=== PATIENT | male | born 1955 | race Caucasian/White ===

== ENCOUNTER 2020-04-01 09:49 | Observation (INO) | payer BC, MEDICARE, SELFPAY ==
[2020-04-01] VITALS (10 sets, daily range): BP systolic 142–187; BP diastolic 82–114; PULSE 73–87; RESP 16–17; TEMP 36.7; O2SAT 92–99
--- NOTE | ~2020-04-01 | XR_ITS ---
EXAMINATION: XR chest 1V DATE: 04/01/2020 11:50 INDICATION: Dizziness. Weakness. Nausea and vomiting. TECHNIQUE: A single frontal view of the chest was obtained. COMPARISON: Chest single view 03/16/2014 FINDINGS: The chest demonstrates clear lungs without pneumonia, pleural effusion, or pneumothorax. Th e heart size is normal. IMPRESSION: 1. No acute cardiopulmonary disease. Reviewed, dictated and finalized at location A. BALL TRIMMER
--- NOTE | ~2020-04-01 | CT_ITS ---
EXAMINATION: CT brain wo con DATE: 04/01/2020 11:41 INDICATION: Dizziness. TECHNIQUE: Computed tomography (CT) of the head was performed without intravenous contrast. The mA wa s adjusted according to patient size. Iterative reconstruction technique was employed. The dose-lengt h product was 681.00 mGy-cm. COMPARISON: Head CT 03/16/2014 FINDINGS: There is no intracranial hemorrhage, acute infarction, or abnormal intracranial mass lesion . The ventricles are normal in size. The orbits are normal. There is mild mucosal thickening in the p aranasal sinuses. The mastoid air cells are normal. IMPRESSION: 1. Normal brain. Reviewed, dictated and finalized at location A. ER HOLE REAMER IMPRESSION: 1. Normal brain.
--- NOTE | ~2020-04-01 | MR_ITS ---
EXAMINATION: MR brain/brain stem wo/w con EXAM DATE: 04/02/2020 09:25 INDICATION: Vertigo. TECHNIQUE: Magnetic resonance imaging (MRI) of the brain/brain stem obtained without contrast. Sagit emelina T1, axial diffusion, gradient echo (T2*), T1, T2, FLAIR sequences obtained. Patient was then inj ected with 17 cc intravenous Multihance contrast. Axial and coronal postcontrast T1 weighted sequence s obtained. There is no prior study for comparison. FINDINGS: There are no areas of restricted diffusion to suggest acute infarction. There is no acute hemorrhage seen on the T2*, a hemosiderin sensitive sequence. No intraparenchymal brain mass lesion. There is mild periventricular and subcortical T2/FLAIR signal hyperintensity, nonspecific but probab ly related to small vessel ischemic disease (microangiopathy). There are no extra-axial collections . Flow voids are seen in the cerebral arteries on the T2-weighted sequences consistent with their ex pected patency. The orbits are unremarkable. Soft tissue is unremarkable. Mild mucoperiosteal thick ening. IMPRESSION: 1. No acute intracranial findings. 2. Chronic age related findings. Reviewed, dictated and finalized at location B. ETING DESIGNER
[2020-04-01] MEDS: ONDANSETRON INJ 4 MG/2 ML VIAL IV PUSH (10:00)
[2020-04-01] MEDS: diazePAM INJ (*CRX) 10 MG/2 ML SYRINGE 5 MG IV PUSH (10:00)
--- NOTE | 2020-04-01 10:20 | PC.NURSE ---
pt sleeping. o2 decreased to 90% room air. pt placed on 2 l via nc. pt noted to have sleep apnea. per states pt has been having that at home as well. suggested to pt have sleep study completed.
[2020-04-01] MEDS: MECLIZINE HCL 25 MG TABLET PO (10:49)
--- NOTE | 2020-04-01 11:17 | ECG_ITS ---
Measurements Intervals [place] Rate: 76 P: 12 AR: 189 QRS: 44 QRSD: 109 T: 17 QT: 393 QTc: 444 Interpretive Statements SINUS RHYTHM CONSDIER INFERIOR INFARCT, AGE INDETERMINATE ABNORMAL ECG Electronically Signed On 04-01-2020 12:04:15 AUTOMOTIVE GLAZIER by Brennan Velez D.O.
--- NOTE | 2020-04-01 11:36 | ED.DIZZY ---
HPI - Dizziness General Chief Complaint: Dizziness Stated Complaint: VERTIGO Time Seen by Provider: 04/01/20 11:08 Source: RN notes reviewed History of Present Illness HPI Narrative: Patient presents emergency department from home for vertigo. Patient states symptoms began approximately 1 hour prior to arrival states he began to feel like the room was spinning and was associated nausea and vomiting. Patient states he has had vertigo before in the past and feels similar to prior episodes. He denies any fevers or chills vision changes numbness or tingling in extremities chest pain shortness of breath abdominal pain nausea vomiting or any other symptoms. 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 secondary to Covid and is concerned about possible Covid Related Data Allergies Allergy/AdvReac Type Severity Reaction Status Date / Time No Known Allergies Allergy Unknown Verified 03/16/14 13:32 Review of Systems Review of Systems: Narrative: Gen.: Denies fevers or chills Eyes: Denies eye pain or visual change ENT: Denies congestion Respiratory: Denies shortness of breath or cough CV: Denies chest pain or palpitations GI: Denies abdominal pain reports nausea vomiting denies burning, urgency, frequency or hematuria Musculoskeletal: Denies back pain or muscle pain Neuro: See HPI Skin: Denies rash Except as documented, all other systems reviewed and negative [facility] Past Medical History Medical History (Updated 04/01/20 @ 14:28 by Romulo Torres DO) Kidney stones Social History Social History (Updated 04/01/20 @ 11:38 by Romulo Torres DO) Smoking status: Never smoker Exam Narrative: Exam Narrative: APPEARANCE: No acute distress, nontoxic, resting in bed HEENT: Normocephalic, atraumatic, OMM, EYES: PERRL, EOMI NECK: Supple, nontender, full range of motion without pain, no meningismus RESPIRATORY: No respiratory distress, clear to auscultation bilaterally with no rhonchi wheezing or rales CARDIOVASCULAR: RRR s murmur ABDOMINAL: Soft, nontender, nondistended MUSCULOSKELETAL: Moves all extremities. No clubbing, cyanosis or edema. NEURO: A and O ?3, following commands, speech normal, cranial nerves II through XII grossly intact,muscle strength 5 out of 5 bilateral upper and lower extremities dizziness with opening eyes SKIN:: Warm, dry. Normal Color PSYCHIATRIC: Normal affect/mood Course Course Emergency Course: Patient continues to have vertigo with opening eyes unable to ambulate secondary to vertigo will admit at this time Discussed with SYLVAIN Goel for Dr. Meng presentation work-up agrees with admission Discussed with patient and family results of workup and diagnosis. Discussed need for admission. Patient and family understand and agree to current treatment plan Vital Signs Vital signs: Vital Signs Pulse Rate 80 04/01/20 09:50 Respiratory Rate 16 04/01/20 09:50 Blood Pressure 158/98 H 04/01/20 09:50 Pulse Oximetry 92 04/01/20 09:50 Pulse Rate 82 04/01/20 13:38 Respiratory Rate 17 04/01/20 13:17 Blood Pressure 187/114 H 04/01/20 13:38 Pulse Oximetry 99 04/01/20 13:17 MDM - Dizziness Lab Data Result diagrams: 04/01/20 12:06 04/01/20 12:06 Labs: Lab Results 04/01/20 04/01/20 04/01/20 Range/Units 12:06 12:06 12:06 WBC 12.5 H (4.5-10.0) K/mm3 RBC 5.62 (4.6-6.20) M/mm3 Hgb 16.5 (14.0-18.0) g/dL Hct 48.6 (42.0-52.0) % MCV 86.5 (80-100) fl MCH 29.4 (26-34) pg MCHC 34.0 (32-36) g/dl RDW 12.9 (11.5-14.5) % Plt Count 180 (150-375) k/mm3 MPV 10.3 (7.4-10.4) fl Immature Gran % (Auto) 0.7 H (0-0.5) % Neut % (Auto) 85.7 H (45.5-73.1) % Lymph % (Auto) 7.2 L (18.3-44.2) % Norman % (Auto) 5.8 (2.6-8.5) % Eos % (Auto) 0.3 (0-4.4) % Baso % (Auto) 0.3 (0.2-1.2) % Lymph # (Auto) 0.90 (0.9-3.2) K/mm3 Norman # (Auto) 0.7 H (0.1-
[2020-04-01] MEDS: SODIUM CHLORIDE 0.9% IV 1,000 ML 999 ML IV CONT (12:13)
[2020-04-01 12:17] LABS: Basophils Percent Auto 0.3 % (0.2-1.2); Eosinophils Percent Auto 0.3 % (0-4.4); Hematocrit 48.6 % (42.0-52.0); Hemoglobin 16.5 g/dL (14.0-18.0); Immature Granulocyte Absolute 0.09 K/mm3 (0.00-0.031); Immature Granulocyte Percent A 0.7 % (0-0.5); Lymphocytes Percent Auto 7.2 % (18.3-44.2); Mean Corpuscular Hemoglobin 29.4 pg (26-34); Mean Corpuscular Volume 86.5 fl (80-100); Mean Platelet Volume 10.3 fl (7.4-10.4); Monocytes Absolute Auto 0.7 K/mm3 (0.1-0.6); Monocytes Percent Auto 5.8 % (2.6-8.5); Neutrophils Absolute Auto 10.7 K/mm3 (1.3-6.7); Neutrophils Percent Auto 85.7 % (45.5-73.1); Platelet Count Result 180 k/mm3 (150-375); Red Blood Count 5.62 M/mm3 (4.6-6.20); Red Cell Distribution Width 12.9 % (11.5-14.5); White Blood Count 12.5 K/mm3 (4.5-10.0)
[2020-04-01 12:28] LABS: Alanine Aminotransferase 45 U/L (4-50); Albumin Level 4.4 g/dL (3.5-5.1); Alkaline Phosphatase 84 U/L (38-126); Anion Gap 6 mmol/L (8-16); Aspartate Amino Transferase 35 U/L (17-59); Bilirubin,Total 0.6 mg/dL (0.2-1.3); Blood Urea Nitrogen 12 mg/dL (9-20); Carbon Dioxide 28 mmol/L (22-30); Chloride 105 mmol/L (98-107); Estimated CRCL calculation 61 ml/min; Estimated Glomerular Filt Rate > 60; Glucose 149 mg/dL (75-110); Potassium 4.4 mmol/L (3.4-5.0); Sodium 139 mmol/L (137-145)
[2020-04-01 12:31] LABS: Prothrombin Time 13.5 Seconds (11.1-14.7)
[2020-04-01 12:32] LABS: Partial Thromboplastin Time 26.9 SECONDS (22.3-36.8)
[2020-04-01 12:53] LABS: Troponin I < 0.012 ng/mL (0.000-0.034)
[2020-04-01 13:58] LABS: Add Urine Microscopic? NO; Appearance Urine Clear (Clear); Bilirubin Urine Negative (Negative); Blood Urine Negative (Negative); Color Urine Straw (Yellow); Glucose Urine UA Negative (Negative); Ketones Urine Negative (Negative); Leukocyte Esterase Ur Negative LEU/UL (Negative); Nitrate Urine Negative (Negative); Protein Urine Negative (Negative); Specific Grav Ur 1.012 (1.001-1.035); Urobilinogen Urine Negative mg/dL (<2.0)
--- NOTE | 2020-04-01 17:00 | ADMGEN ---
This patient, Bob Butcher , was admitted to Medical Room 256-. Patient/family oriented to hospital policies and general routines including ID bracelet, bed and alarms, visiting hours, pain management, procedures, bathroom and other care routines, personal items, smoking policy, room service/diet, and visiting hours. Information on how to activate the Rapid Response Team has been discussed. Patient/Family are encouraged to report perceived risks to care and to ask questions if they do not understand what they are told or what they should do.
[2020-04-01] MEDS: LACTATED RINGERS 1,000 ML 125 ML IV CONT (17:19)
[2020-04-01 19:16] LABS: Troponin I < 0.012 ng/mL (0.000-0.034)
[2020-04-01 22:21] LABS: Troponin I < 0.012 ng/mL (0.000-0.034)
[2020-04-02] VITALS (11 sets, daily range): BP systolic 144–175; BP diastolic 80–84; PULSE 66–87; RESP 14–16; TEMP 36.4–37.2; O2SAT 92–95
[2020-04-02] MEDS: LACTATED RINGERS 1,000 ML 125 ML IV CONT ×2 (01:44→11:35)
[2020-04-02 05:59] LABS: Anion Gap 3 mmol/L (8-16); Blood Urea Nitrogen 11 mg/dL (9-20); Calcium 8.8 mg/dL (8.4-10.2); Carbon Dioxide 28 mmol/L (22-30); Chloride 106 mmol/L (98-107); Estimated CRCL calculation 67 ml/min; Estimated Glomerular Filt Rate > 60; Glucose 102 mg/dL (75-110); Potassium 3.9 mmol/L (3.4-5.0); Sodium 137 mmol/L (137-145)
[2020-04-02 06:05] LABS: Basophils Percent Auto 0.2 % (0.2-1.2); Eosinophils Absolute Auto 0.1 K/mm3 (0-0.3); Eosinophils Percent Auto 0.6 % (0-4.4); Hematocrit 44.2 % (42.0-52.0); Hemoglobin 14.9 g/dL (14.0-18.0); Immature Granulocyte Absolute 0.03 K/mm3 (0.00-0.031); Immature Granulocyte Percent A 0.3 % (0-0.5); Lymphocytes Absolute Auto 1.85 K/mm3 (0.9-3.2); Lymphocytes Percent Auto 20.9 % (18.3-44.2); Mean Corpuscular HGB Conc 33.7 g/dl (32-36); Mean Corpuscular Hemoglobin 29.4 pg (26-34); Mean Corpuscular Volume 87.2 fl (80-100); Mean Platelet Volume 10.3 fl (7.4-10.4); Monocytes Absolute Auto 1.1 K/mm3 (0.1-0.6); Monocytes Percent Auto 12.4 % (2.6-8.5); Neutrophils Absolute Auto 5.8 K/mm3 (1.3-6.7); Neutrophils Percent Auto 65.6 % (45.5-73.1); Platelet Count Result 184 k/mm3 (150-375); Red Blood Count 5.07 M/mm3 (4.6-6.20); White Blood Count 8.9 K/mm3 (4.5-10.0)
[2020-04-02] MEDS: MECLIZINE HCL 6.25 MG TABLET PO ×3 (10:10→16:55)
[2020-04-02] MEDS: METOPROLOL SUCCINATE EXT REL 50 MG TABCR PO (10:10)
--- NOTE | 2020-04-02 15:52 | PM.IMHP ---
H&P: HPI History of Present Illness Date/Time: 04/02/20 Chief Complaint: Vertigo Narrative: Date of Admission 04/01/20 1538 Date/Time Seen 04/02/20 0915 The supervising physician for this history and physical is Dr Ino Meng. Mr. Butcher is a pleasant 65yo M with history of hypertension who presented to the ED for evaluation of sudden onset vertigo symptoms that began around 9:00 AM 04/01 while he was work. He described he suddenly felt as though the room was spinning. Yesterday he also had associated nausea and vomiting which is improved today. He denies any headaches or photophobia. No focal arm or leg weakness, numbness, or tingling. He has experienced vertigo in the past, but he describes this episode is much worse and has lasted much longer. He describes that about 1 week ago he had an episode of vertigo that lasted around 3-4 minutes and subsided on its own. Today, he feels mildly nauseous without emesis. His room-spinning sensation is exacerbated by movement and with lying on his back; relieved by closing his eyes. He has not had much to eat or drink since yesterday due to the dizziness. Workup thus far has included CT brain which shows no acute intracranial abnormalities, chest x-ray which is clear, routine lab work has demonstrated mild leukocytosis WBC 12,500 which is resolved this morning. Overall, his symptoms are still present but a little improved compared to when he came in. Review of Systems Review of Systems: Narrative: Patient describes room spinning sensation worsened with movement and lying flat on his back, relieved with closing his eyes. Denies headache or photophobia. No arm or leg weakness, numbness, tingling. Mild nausea persists today without emesis, he was vomiting yesterday. He denies any known exposure to COVID positive person's, although a co-worker was quarantined due to being exposed to a COVID positive family member, but the patient's co-worker did not test positive to his knowledge. Patient denies shortness of breath, cough, chest pain, palpitations, fever or chills. Denies loss of taste or smell. Twelve systems were reviewed with pertinent positives and negatives as per HPI. Except as documented, all other systems were reviewed and are negative. [facility] Past Medical History Medical History (Updated 04/02/20 @ 16:40 by Estephanie Crews PA-C) Hypertension Kidney stones Surgical History Surgical History (Updated 04/02/20 @ 16:31 by Estephanie Crews PA-C) S/P tonsillectomy As a child Status post right knee replacement Family History Family History (Updated 04/01/20 @ 17:41 by Clau Coley, RN) Father Cancer Diabetes mellitus Mother Lung cancer Social History Social History (Updated 04/02/20 @ 16:34 by Estephanie Crews PA-C) Social History: Mr. Butcher lives at home with his girlfriend, Tabitha, in [place]. 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 He denies alcohol, tobacco, or other substance use. PCP: Dr Rob Vega in [place] POA: Daughter, Alejandra Ochoa Code: Full Code Smoking status: Never smoker Alcohol intake: never Substance use: never Gender identity (if verbalized by the patient): Male Sexual Orientation (if Verbalized by the Patient): Straight or Heterosexual Spiritual care concerns: No Meds Home Medications and Allergies Home Medications Medication Instructions Recorded Confirmed Type metoprolol succinate 50 mg PO DAILY 04/01/20 04/01/20 History Allergies Allergy/AdvReac Type Severity Reaction Status Date / Time No Known Allergies Allergy Unknown Verified 04/01/20 17:24 Vital Signs Last Vital Signs Temp 98.2 F 04/02/20 14:00 Pulse 75 04/02/20 14:00 Resp 14 04/02/20 14:00 BP 175/80 H 04/02/20 14:00 Pulse Ox 95 04/02/20 14:00 Exam Narrative: Exam Narrative: General: Well-developed, well-nourished male resting lying on his left side in bed in no acute distress, eyes
--- NOTE | 2020-04-02 17:25 | PCPTNOTE ---
Physical Therapist downgraded patient's treatment frequency from BID 5-7days/wk to OD 5-7days/wk given his progress with functional mobility during today's afternoon therapy session. Bess Rhodes, PT, DPT
[2020-04-02] MEDS: LACTATED RINGERS 1,000 ML 100 ML IV CONT (20:36)
[2020-04-03] VITALS: PULSE 72
[2020-04-03 04:00] VITALS: PULSE 65
[2020-04-03 05:15] VITALS: BP 148/79; PULSE 64; RESP 16; TEMP 36.5; O2SAT 92
[2020-04-03] MEDS: LACTATED RINGERS 1,000 ML 100 ML IV CONT (06:12)
[2020-04-03 08:00] VITALS: PULSE 64
[2020-04-03] MEDS: METOPROLOL SUCCINATE EXT REL 50 MG TABCR PO (09:04)
[2020-04-03] MEDS: MECLIZINE HCL 6.25 MG TABLET PO ×2 (09:05→12:59)
[2020-04-03 12:00] VITALS: PULSE 64
[2020-04-03 14:00] VITALS: BP 161/80; PULSE 70; RESP 18; TEMP 36.5; O2SAT 95
--- NOTE | 2020-04-03 14:57 | PM.DS ---
DS: Admitting Diagnosis Admitting Diagnosis Admitting Diagnosis: Vertigo DS: Discharge Diagnosis Discharge Diagnosis (1) Vertigo: Code(s): R42 - Dizziness and giddiness Status: Acute Assessment and Plan: Date of Admission 04/01/20 Date of Discharge/DOS 04/03/20 Mr. Butcher is a pleasant 65yo M with history of hypertension who presented to the ED for evaluation of sudden onset vertigo symptoms that began around 9:00 AM 04/01 while he was work. He described he suddenly felt as though the room was spinning with associated nausea and vomiting, without headache or photophobia. No focal arm or leg weakness, numbness, or tingling. He has experienced vertigo in the past, but he describes this episode is much worse and has lasted much longer. CT and MRI of brain demonstrate no acute intracranial abnormality. Vertigo is suspected. He was treated with meclizine, valium in ED, antiemetics, and IV hydration. He was seen by physical therapy for vestibular therapy and can continue such at discharge if needed. His symptoms improved with the therapy outlined above and he is able to ambulate independently without too much dizziness. He is hemodynamically stable for discharge on 04/03/20 with instructions to follow up with PCP this week. Patient symptoms are improved but still present. CT and MRI brain show no acute intracranial abnormalities. Treated with supportive care with meclizine, antiemetics as needed, IV hydration. PT saw him for vestibular therapy. (2) Hypertension: Code(s): I10 - Essential (primary) hypertension Status: Chronic Assessment and Plan: BPs elevated prior to home metoprolol was resumed. BPs improved with his metoprolol, continue same at discharge and follow up with PCP. DS: Summary Hospital Course Hospital Course: See above. Time Spent with Patient Time attestation: Total time spent providing and/or coordinating discharge services: Exam Narrative: Exam Narrative: General: Well-developed, well-nourished male resting lying on his left side in bed in no acute distress, eyes closed. HEENT: Normocephalic, atraumatic, EOMI, PERRL, oral mucosa tacky, oropharynx clear without exudate or erythema. No nystagmus. Neck: Supple. Chest: Lungs clear to auscultation all soto. Respirations are even and nonlabored. Tolerating room air. Heart: Heart rate and rhythm regular with S1-S2. No murmur, rub, or gallop appreciated. Abdomen: Protuberant but soft, nontender, nondistended, bowel sounds present. Skin: Warm, dry, no rashes or lesions noted on limited exam. Extremities: Peripheral pulses intact. No edema, or pain to palpation. Neurologic: Awake, alert and oriented. No neurological deficits are noted conversation. Cranial nerves II-XII intact as tested. Speech is clear. No nystagmus noted. Psychiatric: Mood and affect are normal. Cooperative. DS: Data Imaging Radiologist's impression: Last Vital Signs Temp 97.7 F 04/03/20 14:00 Pulse 70 04/03/20 14:00 Resp 18 04/03/20 14:00 BP 161/80 H 04/03/20 14:00 Pulse Ox 95 04/03/20 14:[address] 04/01/20 11:46 IMPRESSION: 1. Normal brain. Chest X-Ray 04/01/20 11:51 IMPRESSION: 1. No acute cardiopulmonary disease. Brain MRI 04/02/20 09:27 IMPRESSION: 1. No acute intracranial findings. 2. Chronic age related findings. Laboratory Tests 04/02/20 05:28 04/02/20 05:28 Discharge Plan Discharge Attending physician on discharge: Ino Meng Discharging Clinician: Estephanie Crews Anticipated Discharge Date/Time: 04/03/20 14:57 Patient Disposition: Home, Self-Care Activity: as tolerated Diet: as tolerated Discharge Instructions: Call to schedule a hospital follow up appointment with your primary care provider in
== END 2020-04-03 16:08 | disposition home or self-care (01) ==
LOC: ANHED 14:28 → ANH3MED 16:02 → ANH2MED 16:13
PROVIDERS: Admitting Provider Internal Medicine; Emergency Provider Emergency Medicine; PCP Family Medicine; Visit Provider Physician Assistant
DX: R42 Dizziness and giddiness (principal); I10 Essential (primary) hypertension; Z96.651 Presence of right artificial knee joint
CPT/HCPCS: 36415; 70450; 70553; 71045; 80048; 80053; 81003; 84484; 85025; 85610; 85730; 93005; 96361; 96374; 96375; 97116; 97161; 97530; 99285; A9270; A9577; G0378; J2405; J3360; J7030; J7120

== ENCOUNTER 2020-04-17 12:09 | Outpatient (RCR) | payer BC, MEDICARE, SELFPAY ==
--- NOTE | 2020-04-17 13:39 | PTOPEVAL ---
PHYSICAL THERAPY EVALUATION AND PLAN OF CARE 04-17-2020 Thank you for referring Bob Choi Hadley Faulkner to [facility] for the diagnosis of vertigo. Plan of care is established for therapy? 0-2 x/week for 4 weeks. He is to call for an appointment if he has any additional vertigo and requires treatments. Please review, sign, date and return this plan of care KATHY. I agree with and certify that the following plan of care is medically necessary. Referring Physician Date Attending Provider: CLAUDIA BlancPT Outpatient Evaluation Start: 04/17/20 12:40 Document 04/17/20 12:35 ALBERT (Rec: 04/17/20 13:38 ALBERT [id number]) Outpatient Past Medical History Past Medical History Source of Past Medical History Recalled from Previous Visit, Confirmed with Patient/Family Neurological History Hx Neurological Disorders No Significant History Cardiovascular History Hx Hypertension Yes: meds Respiratory History Hx Respiratory Disorders No Significant History Gastrointestinal History Hx Gastrointestinal Disorders No Significant History Genitourinary History Hx Benign Prostatic Hyperplasia Yes Hx Other Genitourinary Disorders Yes: x2 biopsies of prostate Musculoskeletal History Hx Joint Replacement Yes: R TKR Hx Other Musculoskeletal Disorders Yes: L knee pain/ OA; Hematological History Hx Hematological Disorders No Significant History Endocrine History Hx Endocrine Disorders No Significant History HEENT History Hx Tonsillectomy Yes Integumentary History Hx Other Skin Disorders Yes: atheletes foot Reproductive History Hx Reproductive Disorders No Significant History Psychosocial History Hx Psychiatric Disorders No Significant History Pain History History of Any Previous or Ongoing No Significant History Instance of Pain Anesthesia History Hx Anesthesia Reactions No Significant History Evaluation Information Problem Diagnosis vertigo Onset Apr 01, 2020 Subjective Information hospitalized due to dizziness Query Text:As Reported By Patient/ for 3 days; MRI of head, CT Family head, lung and chest x rays, EKG; all tests were negative; Previous Treatments Previous Treatments For This Problem when in hospital they did maneuver 1x helped some Prior Level of Function Activity Level (Last 3 Months) Occupation office and phone tasks Activity of Daily Living Ability Independent Indoor/Home Mobility Independent Community Mobility Independent Stairs Ability Independent Functional Cognition (Planning, Shopping Independent , Taking Medications) Cooking Yes Cleaning Yes Laundry Yes
--- NOTE | 2020-05-20 09:35 | PCPTNOTE ---
PHYSICAL THERAPY DISCHARGE 05-20-20 Attending Provider: CLAUDIA Blanc Patient:Bob Butcher Jr. Date of :1955 Mr. Butcher has not returned for any further treatments since the PT evaluation on 04/17/2020, for the diagnosis of vertigo. therefore he will be discharged at this time. At the evaluation, he was educated on vertigo and self management/care. He was to call if he needed any additional treatment. Thank you [facility]. Please review, sign, date and return this discharge summary KATHY. I have been updated about the patient's current status and I agree with discharge from the above service at this time. Referring Physician Date
== END 2020-05-20 14:23 | disposition home or self-care (01) ==
LOC: ANHPT 12:09
PROVIDERS: PCP Family Medicine
DX: R42 Dizziness and giddiness (principal)
CPT/HCPCS: 97161

== ENCOUNTER 2022-06-18 02:53 | Observation (INO) | payer MEDICARE, SELFPAY ==
[2022-06-18] VITALS (11 sets, daily range): BP systolic 128–177; BP diastolic 73–118; PULSE 63–85; RESP 15–32; TEMP 36.4–36.6; O2SAT 93–100; BMI 42.0
--- NOTE | ~2022-06-18 | XR_ITS ---
EXAMINATION: XR chest 2V DATE: 06/18/2022 03:21 INDICATION: Midsternal chest pain. TECHNIQUE: Frontal and lateral views of the chest were obtained. COMPARISON: Chest one view 04/01/2020 FINDINGS: There are mild airspace opacities in right mid and lower lung zones. No pleural effusion or pneumothorax. The heart size is normal. IMPRESSION: 1. Mild airspace opacities in right mid and lower lung zones, consistent with atelectasis versus pneu monia. Reviewed, dictated and finalized at location A. IMPRESSION: 1. Mild airspace opacities in right mid and lower lung zones, consistent with a telectasis versus pneumonia.
--- NOTE | 2022-06-18 02:56 | ECG_ITS ---
Measurements Intervals [place] Rate: 69 P: -4 TN: 185 QRS: 68 QRSD: 95 T: 37 QT: 363 QTc: 390 Interpretive Statements SINUS RHYTHM COMPARED TO ECG 04/01/2020 10:06:26 NO SIGNIFICANT CHANGES Electronically Signed On 06-18-2022 10:18:05 CDT by Enio Betancourt M.D.
[2022-06-18 03:21] LABS: Basophils Percent Auto 0.5 % (0.2-1.2); Eosinophils Absolute Auto 0.2 K/mm3 (0-0.3); Eosinophils Percent Auto 2.1 % (0-4.4); Hematocrit 47.1 % (42.0-52.0); Immature Granulocyte Absolute 0.02 K/mm3 (0.00-0.031); Immature Granulocyte Percent A 0.3 % (0-0.5); Lymphocytes Absolute Auto 2.25 K/mm3 (0.9-3.2); Lymphocytes Percent Auto 29.2 % (18.3-44.2); Mean Corpuscular Hemoglobin 29.6 pg (26-34); Mean Corpuscular Volume 87.1 fl (80-100); Mean Platelet Volume 10.5 fl (7.4-10.4); Monocytes Absolute Auto 0.7 K/mm3 (0.1-0.6); Monocytes Percent Auto 9.1 % (2.6-8.5); Neutrophils Absolute Auto 4.5 K/mm3 (1.3-6.7); Neutrophils Percent Auto 58.8 % (45.5-73.1); Platelet Count Result 181 k/mm3 (150-375); Red Blood Count 5.41 M/mm3 (4.6-6.20); Red Cell Distribution Width 13.2 % (11.5-14.5); White Blood Count 7.7 K/mm3 (4.5-10.0)
[2022-06-18] MEDS: ASPIRIN 81 MG CHEWABLE TABLET 324 MG PO (03:23)
[2022-06-18] MEDS: NITROGLYCERIN SL 0.4 MG TABLET SUBLINGUAL (03:24)
[2022-06-18 03:31] LABS: Alanine Aminotransferase 38 U/L (6-50); Albumin Level 4.4 g/dL (3.5-5.1); Alkaline Phosphatase 75 U/L (38-126); Anion Gap 10 mmol/L (8-16); Aspartate Amino Transferase 30 U/L (17-59); Bilirubin,Total 0.7 mg/dL (0.2-1.3); Blood Urea Nitrogen 12 mg/dL (9-20); Calcium 9.2 mg/dL (8.4-10.2); Carbon Dioxide 26 mmol/L (22-30); Chloride 103 mmol/L (98-107); Estimated CRCL calculation 86 ml/min; Estimated Glomerular Filt Rate > 60; Glucose 137 mg/dL (65-110); Lipase 272 U/L (23-300); Sodium 139 mmol/L (137-145)
[2022-06-18 03:36] LABS: Partial Thromboplastin Time 30.6 SECONDS (22.3-36.8)
[2022-06-18 03:42] LABS: Troponin I < 0.012 ng/mL (0.000-0.034)
--- NOTE | 2022-06-18 04:41 | ED.GENADULT ---
HPI - General Adult General Chief complaint: Chest Pain Stated complaint: chest pain Time Seen by Provider: 06/18/22 02:56 History of Present Illness HPI narrative: 67-year-old male history of hypertension presented the emergency department for evaluation of chest pain. Patient states that he did have chest pain while at work during exertion but this chest pain did improve at rest. Patient states this morning prior to arrival he had onset of the chest pressure again. Patient reports that the pain did radiate into his back. Patient denies any prior history of [place]. Patient states he has not had a stress test. Patient states his last cholesterol tests were normal. Patient does take medication for hypertension. Related Data Home Medications Medication Instructions Recorded Confirmed metoprolol succinate 50 mg 50 mg PO DAILY 04/01/20 04/01/20 tablet,extended release 24 hr Allergies Allergy/AdvReac Type Severity Reaction Status Date / Time No Known Allergies Allergy Unknown Verified 06/18/22 02:53 Review of Systems Review of Systems: All systems reviewed & are unremarkable except as noted in HPI and below PMFSH Past Medical History Medical History (Updated 06/18/22 @ 07:29 by Loi Mc MD) Hypertension Kidney stones Surgical History Surgical History (Updated 04/02/20 @ 16:31 by Estephanie Crews PA-C) S/P tonsillectomy As a child Status post right knee replacement Family History Family History (Updated 04/01/20 @ 17:41 by Clau Coley RN) Father Cancer Diabetes mellitus Mother Lung cancer Social History Social History (Updated 04/02/20 @ 16:34 by Estephanie Crews PA-C) Social History: Mr. Butcher lives at home with his girlfriend, Tabitha, in [place]. 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 He denies alcohol, tobacco, or other substance use. PCP: Dr Rob Vega in [place] POA: Daughter, Alejandra Ochoa Code: Full Code Smoking status: Never smoker Alcohol intake: never Substance use: never Gender identity (if verbalized by the patient): Male Sexual Orientation (if Verbalized by the Patient): Straight or Heterosexual Spiritual care concerns: No Exam Narrative: APPEARANCE: Well appearing, no pain, no distress, well-nourished. HEAD: normocephalic, atraumatic. EYES: PERRLA/EOMI, conjunctivae clear. NOSE: Normal no drainage EARS:TMS clear with good light reflex. THROAT: Pharynx clear, no exudate. NECK: Supple. No adenopathy, no masses. RESPIRATORY: Airway patent, respirations nonlabored. Clear to auscultation bilaterally, no rales, rhonchi, wheezing. CARDIOVASCULAR: Regular rate and rhythm without murmurs rubs or gallops. ABDOMINAL: Soft, nontender, nondistended, normal bowel sounds MUSCULOSKELETAL: Moves all extremities. Strength/ROM intact, No edema, No calf tenderness. NEURO: Alert. Cranial nerves II through XII intact. Grossly intact SKIN: Warm, dry. Normal Color Course Course Emergency Course: 67-year male presenting for evaluation of chest pressure. Patient's chest pressure was resolved with sublingual nitro. Patient was also treated with 324 mg of aspirin. Patient's x-ray showed no acute cardiopulmonary abnormality. Patient's EKG showed normal sinus rhythm with no ST changes. Patient's delta troponins were negative. Due to the patient's risk factors and concerning story Case was discussed with Dr. Burroughs on for cardiology. Initial plan had been to admit the patient for stress test but no stress test are done over the weekend. This was discussed with the patient and patient was willing to stay for observation to be evaluated by cardiology with anticipation of being discharged later in the day. Patient will most likely be scheduled for a stress test later in the week if cleared by cardiology today. Patient and family were updated on the results of the work-up and plan for observation. All questions and concerns were addressed and evelia
[2022-06-18 06:35] LABS: Troponin I < 0.012 ng/mL (0.000-0.034)
--- NOTE | 2022-06-18 08:00 | ADMGEN ---
This patient, Bob Butcher , was admitted to IMU Room 210-01. Patient/family oriented to hospital policies and general routines including ID bracelet, bed and alarms, visiting hours, pain management, procedures, bathroom and other care routines, personal items, smoking policy, room service/diet, and visiting hours. Information on how to activate the Rapid Response Team has been discussed. Patient/Family are encouraged to report perceived risks to care and to ask questions if they do not understand what they are told or what they should do.
[2022-06-18 09:19] LABS: Troponin I < 0.012 ng/mL (0.000-0.034)
--- NOTE | 2022-06-18 12:04 | PM.CNCAR ---
Assessment and Plan Assessment and plan (1) Chest pain: Code(s): R07.9 - Chest pain, unspecified Status: Acute Assessment and Plan: 67-year-old male with history of hypertension,GERD, obesity. Patient presented to hospital with complaints of chest discomfort. He gives history of GERD, and usually his symptoms improve with antacids. However, this time, his symptoms did not improve with Tums, and improved with sublingual nitroglycerin. EKG is unremarkable, serial troponins are negative. Currently, patient is asymptomatic. I spoke with patient about further evaluation including noninvasive ischemic evaluation which will be performed on Monday. He does not want to stay in the hospital over weekend, and wants to go home and have stress test done as an outpatient. I provided information to the patient about our clinic for further evaluation. Patient was advised to seek immediate medical attention and return to hospital if he has any recurrent or worsening symptoms. He verbalized understanding. -start low-dose enteric coated aspirin 81 mg p.o. daily. Since patient gives history of GERD, it would be reasonable to give aspirin along with PPI. (2) Hypertension: Code(s): I10 - Essential (primary) hypertension Status: Chronic Assessment and Plan: Patient is currently on monotherapy with metoprolol which will be continued. Optimal blood pressure control as an outpatient. History of Present Illness History of Present Illness Consult date/time: 06/18/22 12:04 Reason For Visit: Chest Pain Narrative: DATE OF CONSULT: 06/18/2022 REASON FOR CONSULT: Chest pain REQUESTING PHYSICIAN:Romulo Torres DO CHIEF COMPLAINT: Chest pain HPI: 67-year-old male with history of hypertension,GERD, obesity. Patient presented to [facility] Emergency Room today with complaints of chest pain. He denies any prior cardiac history including clinical IL, angina, heart failure or any known arrhythmias. He states that he occasionally gets lower substernal and epigastric discomfort which he attributes to good. However, yesterday he states that his symptoms lasted a little longer and failed different in the substernal area. He took Tums which did not relieve his symptoms. He denies any fever but has felt little warm at certain times. He denies any recent sick contacts. He decided to come to the hospital for further evaluation. He states that his chest pain resolved with sublingual nitroglycerin in the ER. Blood pressure at presentation 140/74, afebrile, normal heart rate, saturating 100%. EKG on my personal evaluation showed sinus rhythm without any acute ST segment abnormality. Serial troponins negative. Chest x-ray reportedly showed mild airspace opacities in right mid and lower lung zones, consistent with atelectasis versus pneumonia. Review of Systems Review of Systems: General: Negative for fever, chills, fatigue Psychological: Negative for anxiety, depression Ophthalmic: negative for loss of vision ENT: Negative for epistaxis, headaches Allergy and immunology: Negative for hives, nasal congestion Hematologic and lymphatic: Negative for overt bleeding problems Endocrine: Negative for hot flashes, palpitations Respiratory: Negative for cough, hemoptysis Cardiovascular: Positive for chest pain Gastrointestinal: Negative for abdominal pain, nausea, vomiting, hematochezia Musculoskeletal: Negative for myalgia, joint pains Neurological: Negative for weakness Dermatological: Negative for rash, skin discoloration PMFSH Past Medical History Medical History Hypertension Kidney stones Surgical History Surgical History S/P tonsillectomy As a child Status post right knee replacement Family History Family History Father Diabetes mellitus Canc
--- NOTE | 2022-06-18 14:46 | PM.SD2 ---
Same Day Admit/Disch: HPI History of Present Illness Chief complaint: Chest Pain Narrative: Bob Butcher Jr. is a 67 year old male [facility] Past Medical History Medical History Hypertension Kidney stones Surgical History Surgical History S/P tonsillectomy As a child Status post right knee replacement Family History Family History Father Diabetes mellitus Cancer Hypertension Mother Lung cancer Social History Social History Social History: Mr. Butcher lives at home with his girlfriend, Tabitha, in [place]. 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 He denies alcohol, tobacco, or other substance use. PCP: Dr Rob Vega in [place] POA: Daughter, Alejandra Ochoa Code: Full Code Smoking status: Never smoker Alcohol intake: never Substance use: never Lack of Transportation: No Lack of Food: Never True Current Housing: I Have Housing Concerned About Future Housing: No Difficulty Paying Gas/Electric Bills: No Difficulty Paying for Meds: No Currently Unemployed: No Education: Master's Degree or Higher Difficulty w/ Childcare or Family Care: No Gender identity (if verbalized by the patient): Male Sexual Orientation (if Verbalized by the Patient): Straight or Heterosexual Spiritual care concerns: No Same Day Admit/Disch: Med Pre-admit Medications Home Medications Medication Instructions Recorded Confirmed Type celecoxib 200 mg capsule 200 mg PO BID 06/18/22 06/18/22 History metoprolol succinate 100 mg 100 mg PO DAILY 06/18/22 06/18/22 History tablet,extended release 24 hr omeprazole 40 mg capsule,delayed 40 mg PO BID 06/18/22 06/18/22 History release DS: Data Data Completed and Pending Labs on day of discharge: Labs from last 24 hours 06/18/22 06/18/22 06/18/22 08:48 06:06 03:13 WBC RBC Hgb Hct MCV MCH MCHC RDW Plt Count MPV Immature Gran % (Auto) Neut % (Auto) Lymph % (Auto) [place] % (Auto) Eos % (Auto) Baso % (Auto) Lymph # (Auto) [place] # (Auto) Eos # (Auto) Baso # (Auto) Abs Immat Gran (auto) Absolute Neuts (auto) Absolute Nucleated RBC Nucleated RBC % PT INR APTT Sodium 139 Potassium 4.0 Chloride 103 Carbon Dioxide 26 Anion Gap 10 BUN 12 Creatinine 1.00 Estim Creat Clear Calc 86 Estimated GFR > 60 Glucose 137 H Calcium 9.2 Total Bilirubin 0.7 AST 30 ALT 38 Alkaline Phosphatase 75 Troponin I < 0.012 < 0.012 < 0.012 Total Protein 8.0 Albumin 4.4 Lipase 272 06/18/22 06/18/22 03:13 03:12 WBC 7.7 RBC 5.41 Hgb 16.0 Hct 47.1 MCV 87.1 MCH 29.6 MCHC 34.0 RDW 13.2 Plt Count 181 MPV 10.5 H Immature Gran % (Auto) 0.3 Neut % (Auto) 58.8 Lymph % (Auto) 29.2 [place] % (Auto) 9.1 H Eos % (Auto) 2.1 Baso % (Auto) 0.5 Lymph # (Auto) 2.25 [place] # (Auto) 0.7 H Eos # (Auto) 0.2 Baso # (Auto) 0.0 Abs Immat Gran (auto) 0.02 Absolute Neuts (auto) 4.5 Absolute Nucleated RBC 0.0 Nucleated RBC % 0.0 PT 13.0 INR 1.0 APTT 30.6 Sodium Potassium Chloride Carbon Dioxide Anion Gap BUN Creatinine Estim Creat Clear Calc Estimated GFR Glucose Calcium Total Bilirubin AST ALT Alkaline Phosphatase Troponin I Total Protein Albumin Lipase DS: Summary Time Spent with Patient Time attestation: Total time spent providing and/or coordinating discharge services: Discharge Plan Discharge Attending physician on discharge: Kaley Toney Consulting providers: Shreya Burroughs Discharging Clinician: Kaley Toney Patient Disposition: Home, Self-Care Activity: as tolerated D
== END 2022-06-18 15:05 | disposition home or self-care (01) ==
LOC: ANHED 07:29 → ANHIMU 11:00
PROVIDERS: Admitting Provider Student in an Organized Health Care Education/Training Program; Emergency Provider Emergency Medicine; PCP Family Medicine; Visit Provider Student in an Organized Health Care Education/Training Program
DX: R07.9 Chest pain, unspecified (principal); I10 Essential (primary) hypertension; I25.2 Old myocardial infarction; Z79.899 Other long term (current) drug therapy
CPT/HCPCS: 36415; 71046; 80053; 83690; 84484; 85025; 85610; 85730; 93005; 99285; A9270; G0378